=== PATIENT | female | born 1950 | race Caucasian/White ===

== ENCOUNTER 2017-11-05 16:14 | Emergency (ER) | payer OTHER, MEDICARE ==
[~2017-11-05] VITALS: Ht 160 cm; Wt 95.0 kg
[~2017-11-05 16:14] MED LIST: ASPIR-LOW81 MG PO; Antivert PO; CRESTOR20 MG PO; DAILY VITAMIN1 EAC4 PO; Ecotrin PO; LIPITOR40 MG PO; LO-DOSE ASPIRIN81 M2 PO; TRAMADOL HCL50 MG PO; ULTRACET1 TABLET PO
[2017-11-05 18:48] LABS: APPEARANCE CLEAR ((CLEAR)); BILIRUBIN NEGATIVE; BLOOD SMALL; COLOR YELLOW ((YELLOW)); GLUCOSE (STRIP) NEGATIVE; KETONES NEGATIVE; LEUKOCYTES NEGATIVE; NITRITE NEGATIVE; PROTEIN (STRIP) NEGATIVE; UROBILINOGEN 0.2 MG/DL (0.2-1.0)
[2017-11-05 18:51] LABS: BACTERIA NONE SEEN /HPF; EPITHELIAL CELLS RARE /HPF; MUCUS TRACE /LPF; RED BLOOD CELLS 0-5 /HPF (0-5); UCUL ADDED? NO; WHITE BLOOD CELLS 0-5 /HPF (0-5)
[2017-11-05 18:54] LABS: HEMATOCRIT 44.8 % (36.0-46.0); HEMOGLOBIN 14.9 G/DL (11.9-15.5); MCH 30.8 PG (29.0-34.0); MCHC 33.3 G/DL (30.0-36.0); MCV 92.8 FL (83-99); RBC DIS.WIDTH-CV 14.3 % (11.8-14.6); RBC DIS.WIDTH-SD 48.2 % (39-53); RED BLOOD COUNT 4.83 M/uL (3.80-5.20)
[2017-11-05 19:05] LABS: CHLORIDE 104 mEq/L (99-109); POTASSIUM 4.4 mEq/L (3.7-5.4); SODIUM 140 mEq/L (136-147)
[2017-11-05 19:06] LABS: GLUCOSE 89 mg/dL (70-99)
[2017-11-05 19:10] LABS: CREATININE 0.8 mg/dL (0.6-1.3); GFR ESTIMATE (CALCULATED) > 59 mL/min/
[2017-11-05 19:11] LABS: UREA NITROGEN (BUN) 15 mg/dL (9-23)
[2017-11-05 20:47] LABS: PLAT.SUFFICIENCY ADEQUATE; PLATELET COUNT 256 K/uL (156-360)
[2017-11-05] MEDS ORDERED: NORCO 5/3251 TABLET PO (20:55)
[2017-11-05] MEDS ORDERED: MEDROL DOSEPAK4 MG PO (20:55)
[2017-11-05 21:07] VITALS: BP 157/91
== END 2017-11-05 21:09 | disposition home or self-care (01) ==
LOC: EME 16:14
PROVIDERS: Physician Assistant
DX: M54.42 Lumbago with sciatica, left side (principal); R32 Unspecified urinary incontinence; G89.29 Other chronic pain; J44.9 Chronic obstructive pulmonary disease, unspecified; E78.5 Hyperlipidemia, unspecified; Z85.41 Personal history of malignant neoplasm of cervix uteri; F17.200 Nicotine dependence, unspecified, uncomplicated
CPT/HCPCS: 72148; 80048; 81003; 85027; 99281; 99284; J3010